=== PATIENT | female | born 1950 | race Caucasian/White ===

== ENCOUNTER 2016-12-28 07:07 | Day surgery (SDC) | payer MEDICARE ==
[~2016-12-28 07:07] MED LIST: Buffered Lidocaine 0.9% SYRIN* 5 ML/SYR SYRINGE INTRADERM ONE
[2016-12-28] MEDS ORDERED: Midazolam* 1 MG/ML 2 ML VIAL (2 MG) ONE (09:38)
[2016-12-28 10:23] VITALS: BP 160/76
--- NOTE | 2016-12-28 10:36 | OP ---
DATE OF OPERATION: 12/28/2016 - [facility] DATE OF : 1950. SURGEON: Lebron Castellanos M.D. PREOPERATIVE DIAGNOSIS: Cataract right eye. POSTOPERATIVE DIAGNOSIS: Cataract right eye. OPERATIVE PROCEDURE: Phacoemulsification right eye with IOL and CTR. DESCRIPTION OF PROCEDURE: The patient was brought to the operating room after being given 1/2% Alcaine with epinephrine drops in the preoperative area. The eye was prepped and draped in the usual sterile fashion. Sterile drape and eyelid speculum were placed. Again, topical 1/2% Alcaine with epinephrine was given. A paracentesis incision was made at the 9 o'clock position with the No.75 blade. Clear cornea incision 2.2 x 2.2-mm was created at the 12 o'clock position starting at the anterior limbus using the 2.2-mm keratome. The anterior chamber was irrigated with 0.4 mL of 1% non-preservative intracameral lidocaine and filled with DisCoVisc. A capsulorrhexis was completed using the cystotome and the Utrata forceps. Hydrodissection was performed with balanced salt solution. The lens nucleus was removed with the Phacoemulsification handpiece without incident. Cortex was removed with the irrigation-aspiration handpiece. The capsular bag was re-inflated using DisCoVisc and an [id number] implant was inserted with the shooter, followed by a capsular tension ring ACTR 11 inserted with its shooter into the capsular bag. The irrigation-aspiration handpiece was used to remove all residual DisCoVisc. The eye was refilled with balanced salt solution and the wound checked and found to be watertight. Topical Maxitrol drops were given. 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 [id number]/[facility] #: [id number] ZEINAB
[2016-12-28] MEDS ORDERED: Flurbiprofen 0.03% OPTH.SOL* 2.5 ML BTL ONE (13:53)
[2016-12-28] MEDS ORDERED: Proparacaine 0.5% OPHTH.SOL* 15 ML BTL ONE (13:53)
[2016-12-28] MEDS ORDERED: Buffered Lidocaine 0.9% SYRIN* 5 ML/SYR SYRINGE ONE (13:53)
[2016-12-28] MEDS ORDERED: Lidocaine 1% MPF wEPI 200,000* 30 ML SDV ONE (13:53)
[2016-12-28] MEDS ORDERED: acetaZOLAMIDE TAB* 250 MG ONE (13:53)
[2016-12-28] MEDS ORDERED: Neomycin/Polymy/Dex OPTH.SUSP* MAXITROL 0.1% 5 ML ONE (13:53)
[2016-12-28] MEDS ORDERED: Cyclopentolate 1% OPTH.SOL* 2 ML BTL ONE (13:53)
[2016-12-28] MEDS ORDERED: Phenylephrine 2.5% OPTH.SOL* 2 ML BTL ONE (13:53)
[2016-12-28] MEDS ORDERED: Povidone Iodine 5% OPTH* 30 ML BTL ONE (13:53)
[2016-12-28] MEDS ORDERED: Lidocaine 1% MPF* 2 ML VIAL ONE (13:53)
== END 2016-12-28 10:24 | disposition home or self-care (01) ==
LOC: OREAST 07:07
PROVIDERS: ATTEND Specialist
DX: H25.811 Combined forms of age-related cataract, right eye (principal); Z79.82 Long term (current) use of aspirin; Z87.891 Personal history of nicotine dependence
CPT/HCPCS: A9270-GY; J2001; J2250; V2632

== ENCOUNTER 2017-01-04 06:46 | Day surgery (SDC) | payer MEDICARE ==
[2017-01-04] MEDS ORDERED: acetaZOLAMIDE TAB* 250 MG ONE (07:37)
[2017-01-04] MEDS ORDERED: Lidocaine 1% MPF* 2 ML VIAL ONE (07:37)
[2017-01-04] MEDS ORDERED: Povidone Iodine 5% OPTH* 30 ML BTL ONE (07:37)
[2017-01-04] MEDS ORDERED: Phenylephrine 2.5% OPTH.SOL* 2 ML BTL ONE (07:37)
[2017-01-04] MEDS ORDERED: Lidocaine 1% MPF wEPI 200,000* 30 ML SDV ONE (07:37)
[2017-01-04] MEDS ORDERED: Neomycin/Polymy/Dex OPTH.SUSP* MAXITROL 0.1% 5 ML ONE (07:37)
[2017-01-04] MEDS ORDERED: Flurbiprofen 0.03% OPTH.SOL* 2.5 ML BTL ONE (07:37)
[2017-01-04] MEDS ORDERED: Cyclopentolate 1% OPTH.SOL* 2 ML BTL ONE (07:37)
[2017-01-04] MEDS ORDERED: Buffered Lidocaine 0.9% SYRIN* 5 ML/SYR SYRINGE ONE (07:38)
[2017-01-04] MEDS ORDERED: Proparacaine 0.5% OPHTH.SOL* 15 ML BTL ONE (07:38)
[2017-01-04] MEDS ORDERED: Midazolam* 1 MG/ML 2 ML VIAL (2 MG) ONE (08:43)
--- NOTE | 2017-01-04 09:14 | OP ---
DATE OF OPERATION: 01/04/2017 - [facility] DATE OF : 1950. SURGEON: Lebron Castellanos M.D. PREOPERATIVE DIAGNOSIS: Cataract left eye. POSTOPERATIVE DIAGNOSIS: Cataract left eye. OPERATIVE PROCEDURE: Phacoemulsification left eye with IOL. DESCRIPTION OF PROCEDURE: The patient was brought to the operating room after being given 1/2% Alcaine with epinephrine drops in the preoperative area. The eye was prepped and draped in the usual sterile fashion. Sterile drape and eyelid speculum were placed. Again, topical 1/2% Alcaine with epinephrine was given. A paracentesis incision was made at the 3 o'clock position with the No.75 blade. Clear cornea incision 2.2 x 2.2-mm was created at the 6 o'clock position starting at the anterior limbus using the 2.2-mm keratome. The anterior chamber was irrigated with 0.4 mL of 1% non-preservative intracameral lidocaine and filled with DisCoVisc. A capsulorrhexis was completed using the cystotome and the Utrata forceps. Hydrodissection was performed with balanced salt solution. The lens nucleus was removed with the Phacoemulsification handpiece without incident. Cortex was removed with the irrigation-aspiration handpiece. The capsular bag was re-inflated using DisCoVisc and an [id number] implant was inserted with the shooter. The irrigation-aspiration handpiece was used to remove all residual DisCoVisc. The eye was refilled with balanced salt solution and the wound checked and found to be watertight. Topical Maxitrol drops were given. [id number]/[facility] #: [id number] [facility]
[2017-01-04 09:20] VITALS: BP 112/65
== END 2017-01-04 09:19 | disposition home or self-care (01) ==
LOC: OREAST 06:46
PROVIDERS: ATTEND Specialist
DX: H25.812 Combined forms of age-related cataract, left eye (principal); H40.1411 Capsular glaucoma with pseudoexfoliation of lens, right eye, mild stage; Z79.82 Long term (current) use of aspirin; Z87.891 Personal history of nicotine dependence
CPT/HCPCS: A9270-GY; J2001; J2250; V2632

== ENCOUNTER 2018-09-17 17:21 | Inpatient (IN) | payer MEDICARE ==
[2018-09-17] MEDS ORDERED: Acetaminophen TAB* 325 MG PO ONE (17:34)
[2018-09-17] MEDS ORDERED: NS 0.9% 1000 ML** 2,000 ML IV ONE (19:25)
[2018-09-17] MEDS ORDERED: Piperacillin/Tazobac ADVAN(*) 3.375 GM in NS 0.9% 100 ML* 100 ML IVPB ONE (19:26)
[2018-09-17] MEDS ORDERED: Ondansetron INJ* 2 MG/ML VIAL IV PRN (20:02)
[2018-09-17] MEDS ORDERED: Acetaminophen TAB* 325 MG PO PRN (20:02)
[2018-09-17 20:03] LABS: ABS Basophils 0 10^3/ul (0-0.2); ABS Eosinophils 0 10^3/ul (0-0.6); ABS Lymphocytes 2.1 10^3/ul (1.0-4.8); ABS Monocytes 1.5 10^3/ul (0-0.8); ABS Neutrophils 12.4 10^3/ul (1.5-7.7); ABS Nucleated RBC 0 10^3/ul; Eosinophil % 0.2 %; Hematocrit 37 % (35-47); Lymphocyte % 13.2 %; Mean Corpuscular HGB Conc 33 g/dl (31-36); Mean Corpuscular Hemoglobin 28 pg (27-31); Mean Corpuscular Volume 85 fL (80-97); Mean Platelet Volume 6.4 fL (7.4-10.4); Nucleated Red Blood Cells % 0; Platelet Count 304 10^3/ul (150-450); Red Blood Count 4.28 10^6/ul (4.00-5.40); Red Cell Distribution Width 13 % (10.5-15); White Blood Count 16.2 10^3/ul (3.5-10.8)
--- NOTE | 2018-09-17 20:16 | ED ---
Abdominal Pain/Female - HPI Summary HPI Summary: The patient is a 68 y/o F presenting to [facility] accompanied by with a chief complaint of sudden onset sharp suprapubic abd pain for the last 10 days. She is still in pain, which is currently rated 3/10 in severity. She has had one episode of vomiting, during initial onset, and she has been intermittently nauseous since then with a decreased appetite. The pain has been aggravated by eating, despite trying to be careful with her diet, and she has only been eating soup. She denies fevers. Surgical hx of appendectomy. She presented to [facility] this morning, and was advised to come here. She thinks that it may be diverticulitis. - History of Current Complaint Chief Complaint: EDKarenin Stated Complaint: DIVERTICULITIS PER PT Time Seen by Provider: 09/17/18 19:15 Hx Obtained From: Patient Onset/Duration: Sudden Onset, Lasting Days - 10 days, Still Present Timing: Days Severity Initially: Moderate Severity Currently: Moderate Pain Intensity: 3 Pain Scale Used: 0-10 Numeric Location: Suprapubic Radiates: No Character: Sharp Aggravating Factor(s): Food Alleviating Factor(s): Nothing Associated Signs and Symptoms: Positive: Decreased Appetite, Nausea, Vomiting - one episode. Negative: Fever Allergies/Adverse Reactions: Allergies Allergy/AdvReac Type Severity Reaction Status Date / Time No Known Allergies Allergy Verified 01/04/17 07:15 Home Medications: Home Medications Aspirin 1 tab PO DAILY 09/17/18 [History Confirmed 09/17/18] [place]-3 Fatty Acids (Nf) [Fish Oil (NF)] 1 cap PO DAILY 09/17/18 [History Confirmed 09/17/18] PMH/Surg Hx/FS Hx/Imm Hx Endocrine/Hematology History: Denies: Hx Diabetes Cardiovascular History: Reports: Other Cardiovascular Problems/Disorders - genetically high cholesterol, uses diet modification GI History: Reports: Hx Gastroesophageal Reflux Disease - diet modification, uses [place] vinager daily, Other GI Disorders - change in BM, will have colonoscopy after cataract surgery Sensory History: Reports: Hx Cataracts, Hx Contacts or Glasses - near sighted, but does not wear often Denies: Hx Glaucoma, Hx Hearing Aid Opthamlomology History: Reports: Hx Cataracts, Hx Contacts or Glasses - near sighted, but does not wear often Denies: Hx Glaucoma Psychiatric History: Reports: Hx Anxiety - hx of, resolved, better since retired , Hx Depression - hx of, resolved, - Surgical History Surgery Procedure, Year, and Place: 2 yrs old. 19 yrs old, appendectomy. 21 yrs old: left leg scar repair. 1976 and 1978 Hx Anesthesia Reactions: No Infectious Disease History: No Infectious Disease History: Denies: Traveled Outside the [place] in Last 30 Days - Family History Known Family History: Negative: Diabetes - Social History Alcohol Use: Rare Alcohol Amount: 1-2 glasses a year Substance Use Type: Reports: Marijuana Substance Use Comment - Amount & Last Used: smokes marijuana during the day Smoking Status (MU): Former Smoker Amount Used/How Often: smoked for 45 yrs 1 ppd Review of Systems Negative: Fever Positive: Abdominal Pain - suprapubic, Vomiting - one episode, Nausea, Other - decreased appetite All Other Systems Reviewed And Are Negative: Yes Physical Exam - Summary Physical Exam Summary: Appearance: Well-appearing, Well-nourished, lying in bed comfortably Skin: Warm, dry, no obvious rash Eyes: sclera anicteric, no conjunctival pallor ENT: mucous membranes moist, pharynx appears normal Neck: Supple, nontender Respiratory: Clear to auscultation, no signs of respiratory distress Cardiovascular: Normal S1, S2. No murmurs. Normal distal pulses in tibial and radial bilaterally. Abdomen: Soft, nontender, normal active bowel sounds present Musculoskeletal: Normal, Strength/ROM Intact Neurological: A&Ox3, awake and alert, mentation is normal, speech is fluent and appropriate Psychiatric: affect is normal, does not appear anxious or depressed Triage Information Reviewed: Yes Vital Signs On Initial Exam: Initial Vitals Temp Pulse Resp BP Pulse Ox 101.3 F 110 20 154/80 95 09/17/18 17:32 09/17/18 17:32 09/17/18 17:32 09/17/18 17:32 09/17/18 17:32 Vital Signs Reviewed: Yes Diagnostics - Vital Signs Vital Signs Temp Pulse Resp BP Pulse Ox 09/17/18 17:32 101.3 F 110 20 154/80 95 - Laboratory Lab Results: Lab Results 09/17/18 Range/Units 19:48 WBC 16.2 H (3.5-10.8) 10^3/ul RBC 4.28 (4.00-5.40) 10^6/ul Hgb 12.0 (12.0-16.0) g/dl Hct 37 (35-47) % MCV 85 (80-97) fL MCH 28 (27-31) pg MCHC 33 (31-36) g/dl RDW 13 (10.5-15) % Plt Count 304 (150-450) 10^3/ul MPV 6.4 L (7.4-10.4) fL Neut % (Auto) 76.7 % Lymph % (Auto) 13.2 % [place] % (Auto) 9.6 % Eos % (Auto) 0.2 % Baso % (Auto) 0.3 % Absolute Neuts (auto) 12.4 H (1.5-7.7) 10^3/ul Absolute Lymphs (auto) 2.1 (1.0-4.8) 10^3/ul Absolute Monos (auto) 1.5 H (0-0.8) 10^3/ul Absolute Eos (auto) 0 (0-0.6) 10^3/ul Absolute Basos (auto) 0 (0-0.2) 10^3/ul Absolute Nucleated RBC 0 10^3/ul Nucleated RBC % 0 Result Diagrams: 09/17/18 19:48 09/17/18 19:48 Lab Statement: Any lab studies that have been ordered have been reviewed, and results considered in the medical decision making process. Abdominal Pain Fem Course/Dx - Course Course Of Treatment: The patient is a 68 y/o F with a chief complaint of sudden onset sharp suprapubic abd pain for the last 10 days. She has had one episode of vomiting, during initial onset, and she has been intermittently nauseous since then with a decreased appetite. The pain has been aggravated by eating, despite trying to be careful with her diet, and she has only been eating soup. She denies fevers. Surgical hx of appendectomy. Upon physical examination, there are no acute abnormalities. In the ED course, the patient was given Tylenol and Piperacillin/Tazobactam. Bloodwork reveals elevated WBCs, neuts, monos, and CRPs. I consulted with Dr. Pearson, hospitalist, at 1935 who accepts the patient for observational admission. She is diagnosed with diverticular abscess, per results from [facility]. The patient understands the need for admission and agrees with this plan. - Diagnoses Provider Diagnoses: Intestinal diverticular abscess - Provider Notifications Discussed Care Of Patient With: Kev Pearson - hospitalist Time Discussed With Above Provider: 19:35 Instructed by Provider To: Admit As Observation - Dr. Pearson accepts the patient for admission. Admit/Transition Orders Completed By ED Provider: Yes Discharge - Sign-Out/Discharge Documenting (check all that apply): Patient Departure - [place] [facility] [place] by Dr. Pearson. Patient Received Moderate/Deep Sedation with Procedure: No - Discharge Plan Condition: Fair Disposition: ADMITTED TO [facility] - Billing Disposition and Condition Condition: FAIR Disposition: Admitted to [facility] - Attestation Statements Document Initiated by Amelie: Yes Documenting Scribe: Li Benjamin Provider For Whom Amelie is Documenting (Include Credential): Dr. Oleksandr Serrato MD Scribe Attestation: Li Mistry scribed for Dr. Oleksandr Serrato MD on 09/18/18 at 0606. Scribe Documentation Reviewed: Yes Provider Attestation: The documentation as recorded by the Li rabago accurately reflects the service I personally performed and the decisions made by me, Dr. Oleksandr Serrato MD Status of Scribphillip Document: Viewed
[2018-09-17 20:31] LABS: BUN/Creatinine Ratio 16.7 (8-20); C Reactive Protein 127.5 mg/L (<8.01); EGFR African American 97.2 (>60); EGFR Non-African American 80.3 (>60); Potassium 3.7 mmol/L (3.5-5.0)
[2018-09-17] MEDS ORDERED: Lactated Ringers 1000 ML Bag* 1,000 ML IV SCH ×2 (21:00)
[2018-09-17] MEDS ORDERED: Zosyn per Pharmacy* NOTE FOLLOW UP SCH (21:00)
[2018-09-17 22:07] LABS: Urine Appearance Clear; Urine Bilirubin Negative (Negative); Urine Blood Negative (Negative); Urine Color Colorless; Urine Glucose Negative (Negative); Urine Ketones Trace (Negative); Urine Nitrite Negative (Negative); Urine Protein Negative (Negative); Urine Specific Gravity 1.004 (1.010-1.030); Urine Urobilinogen Negative (Negative)
--- NOTE | 2018-09-17 22:56 | HP ---
CC: Nikole Moody Schuyler * ADMISSION HISTORY AND PHYSICAL: DATE OF ADMISSION: 09/17/18 PRIMARY CARE PROVIDER: Nikole Moody Schuyler. MY ATTENDING WHILE IN THE HOSPITAL: Dr. Pearson.* (DICTATED BY TEVIN BENNETT) CHIEF COMPLAINT: Abdominal pain x12 days. HISTORY OF PRESENT ILLNESS: Ms. Chen is a 68-year-old female with past medical history significant for hypertension, hyperlipidemia, and emphysema who presents to the emergency department on . Twelve days ago, she began having severe abdominal pain in her left lower quadrant, particularly with eating, as well as some diarrhea and some vomiting which was orange in color without blood. There was no blood in her stool either. Patient had some low- grade fevers and chills on and off since then. Patient has been able to tolerate a moderate amount of fluids, but anytime she eats she has accompanied severe lower abdominal pain. Patient denies dysuria. Patient has felt intermittent nausea and vomiting. She denies chest pain. Patient has been able to tolerate this over the past 10 days, but states that this morning she took only 3 bites of scrambled eggs and again had the severe abdominal pain, went to the [facility]. Patient there had a CT contrast abdomen and pelvis, which showed a likely abscess between her uterus and her sigmoid colon. Patient was then transferred [place] [facility] [place] [facility] Patient in the emergency department is pain-free and her pain is not reproducible with palpation; however, she does have a white blood cell count. She had a fever of 101.3 and a pulse rate of 110 on admission. On arrival, due to intraabdominal abscess with concern for diverticulitis, we were asked to evaluate the patient for admission to the hospital. PAST MEDICAL HISTORY: Emphysema, hypertension, hyperlipidemia. PAST SURGICAL HISTORY: Appendectomy, x2, skin grafting, cataract surgery, strabismus repair. MEDICATIONS: 1. Aspirin 81 mg p.o. daily. 2. Turmeric. 3. Vitamin C. 4. Fish oil. 5. Vitamin D. 6. High-dose calcium, magnesium and zinc supplementation. ALLERGIES: No known drug allergies. FAMILY HISTORY: Patient's mother of old age. Patient's father of CAD and diabetes. Patient had a brother who of complications of diabetes. SOCIAL HISTORY: Patient smoked for 4 to 5 years and quit 10 years ago. Patient smoked about a pack a day. Patient denies alcohol abuse. Patient still smokes marijuana. Patient used to work at [employer]. Patient is , has 2 children. Her surrogate decision maker will be her , José. REVIEW OF SYSTEMS: A 14-point review of systems was reviewed and is negative, except as above in the HPI. PHYSICAL EXAMINATION GENERAL: Patient is a 68-year-old female who appears her stated age and is sitting comfortably in bed, in no acute distress. VITAL SIGNS: Temperature 101.3, pulse rate 110, respiratory rate 20, oxygen saturation 95% on room air, and blood pressure 154/80. HEENT: Head normocephalic and atraumatic. Sclerae anicteric. No conjunctival injection. Nasal mucosa moist. Oral mucosa moist. No pharyngeal erythema, discharge, or exudate. NECK: Supple, nontender. No lymphadenopathy. No carotid bruits auscultated. No JVD. RESPIRATORY: Diminished throughout. No wheezes, rales, or rhonchi. Good air exchange bilaterally. CARDIAC: Regular rate and rhythm. No clicks, murmurs, gallops, or rubs. Pulses 2+ in the bilateral dorsalis pedis, posterior tibialis and radial areas. ABDOMEN: Soft, nontender, and nondistended. Bowel sounds present and normoactive in all 4 quadrants. No hepatosplenomegaly. No abdominal bruits auscultated. No hepatojugular reflux. Normal percussion. Negative Burnett sign. No rebound or guarding. GENITOURINARY: No CVA or suprapubic tenderness. SKIN: Clean, dry, intact. No rash. NEUROLOGIC: Cranial nerves II through XII through intact. No focal deficits. Alert and oriented x3. PSYCHIATRIC: Pleasant and cooperative. DIAGNOSTIC STUDIES/LAB DATA: Laboratory Data: White blood count 16.2, hemoglobin 12.0, platelet count 304. BMP from [facility]: Glucose 124, creatinine 0.9, BUN 17.8, sodium 135, potassium 4.1, chloride 99, carbon dioxide 26, anion gap 12, calcium 9.8, bilirubin 7.8, albumin 3.5, globulin 4.3 , bilirubin 0.5, AST 18, ALT 30, alkaline phosphatase 84. Studies: Abdomen and pelvis CT, impression: Abscess in the pelvis interposed between the sigmoid colon and uterus favored over a large diverticulum and diverticulitis. We will consider a CT pelvis with rectal contrast prior to any intervention to confirm this represents an abscess. ASSESSMENT AND PLAN: Impression: Ms. Chen is a 68-year-old female with a past medical history significant for hypertension, hyperlipidemia, and emphysema who presents to the emergency department with intermittent abdominal pain particularly with eating for 10 days and was found at an outside facility to have an intraabdominal abscess versus diverticulitis. Patient will be admitted to the hospital for IV antibiotics and surgical consultation. 1. Intraabdominal abscess likely related to diverticulitis. Patient has been having pain on and off for 10 days. Patient meets sepsis criteria at this time. Patient will be given her full 30 mg/kg bolus and then be continued on fluids given her limited ability to take in intake. Due to patient's nausea and vomiting with solids, we will have her on a clear liquid diet, may advance this as tolerated. Patient will be seen in consultation and has been discussed with Dr. Zackary Bangura, who recommended conservative treatment, antibiotics at this time. Patient is currently stable. 2. Emphysema. Patient is not on any medications for her lungs. Patient is currently not in chronic obstructive pulmonary disease exacerbation. 3. Hypertension. Patient is currently borderline hypertensive. Patient is on no medications as this is a recent finding for her. We will monitor patient closely, but we will not start to treat this in the setting of acute illness unless necessary. 4. Hyperlipidemia. Continue patient's fish oil. 5. DVT prophylaxis. Patient will be on heparin subcu. 6. FEN. Patient will have a clear liquid diet and fluids as above. TIME SPENT: Approximately 60 minutes were spent on the admission of this patient, 30 of which were spent [id number] with the patient obtaining history and physical and discussing treatment plan. The plan was discussed with my attending, Dr. Pearson, and he is in agreement. TEVIN BENNETT [id number]/[facility] #: [id number] MTDD
[2018-09-17] MEDS: Heparin VIAL(*) 5000 UNITS/ML VIAL (FIVE THOUSAND) SUBCUT SCH (23:14)
[2018-09-17] MEDS ORDERED: NS 0.9% 1000 ML** 1,000 ML IV ONE (23:45)
[2018-09-18] MEDS ORDERED: ZOSYN 3.375 GM Q8H per EXTENDED INFUSION IVPB SCH ×2
[2018-09-18] MEDS ORDERED: diPHENhydraMINE PO* 25 MG PO ONE (01:59)
[2018-09-18] MEDS: NS 0.9% 1000 ML** 1,000 ML IV SCH ×2 (02:52→17:36)
[2018-09-18] MEDS: Heparin VIAL(*) 5000 UNITS/ML VIAL (FIVE THOUSAND) SUBCUT SCH ×3 (06:05→21:49)
[2018-09-18 07:55] LABS: ABS Basophils 0 10^3/ul (0-0.2); ABS Eosinophils 0 10^3/ul (0-0.6); ABS Lymphocytes 1.5 10^3/ul (1.0-4.8); ABS Monocytes 1.1 10^3/ul (0-0.8); ABS Neutrophils 10.8 10^3/ul (1.5-7.7); ABS Nucleated RBC 0 10^3/ul; Eosinophil % 0.2 %; Hematocrit 36 % (35-47); Lymphocyte % 11.4 %; Mean Corpuscular HGB Conc 33 g/dl (31-36); Mean Corpuscular Hemoglobin 28 pg (27-31); Mean Corpuscular Volume 86 fL (80-97); Mean Platelet Volume 6.3 fL (7.4-10.4); Nucleated Red Blood Cells % 0; Platelet Count 282 10^3/ul (150-450); Red Blood Count 4.22 10^6/ul (4.00-5.40); Red Cell Distribution Width 13 % (10.5-15); White Blood Count 13.5 10^3/ul (3.5-10.8)
[2018-09-18 08:10] LABS: BUN/Creatinine Ratio 11.4 (8-20); C Reactive Protein 175.61 mg/L (<8.01); Calcium 8.7 mg/dL (8.6-10.3); EGFR African American 100.4 (>60); Potassium 3.9 mmol/L (3.5-5.0)
[2018-09-18] MEDS: CMCS: OMEGA-3 FATTY ACIDS (NF) 1,000 MG CAP PO SCH (09:08)
[2018-09-18] MEDS: ZOSYN 3.375 GM Q8H per EXTENDED INFUSION IVPB SCH ×4 (10:23→17:34)
[2018-09-18 10:37] LABS: Hepatitis C Antibody Nonreactive (Nonreactive)
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
[2018-09-18] MEDS: Cholecalciferol TAB* 1000 UNITS PO SCH (17:33)
--- NOTE | 2018-09-18 17:34 | PN ---
Progress Note - Progress Note Date of Service: 09/18/18 SOAP: Subjective: Patient seen and examined Care discussed with Jamel Boles CT reviewed She had colonoscopy last fall-left colon diverticula PEX: Abd is soft and non-distended. Minimal pain on deeper palpation, no rebound or peritoneal signs Plan: Agree with IV abx--abscess is quite small and should resolve with antibiotics Discussed with patient Will follow
--- NOTE | 2018-09-18 17:58 | PN ---
Subjective Date of Service: 09/18/18 Interval History: HOSPITALIST PROGRESS NOTE Patient seen and examined at bedside. Care reviewed and d/w Cayla Vang RN. She feels better today. Abdominal pain is less intense, passing flatus and had 2 small BMs today. Family History: Unchanged from Admission Social History: Unchanged from Admission Past Medical History: Unchanged from Admission Objective Active Medications: Acetaminophen (Tylenol Tab*) 650 mg PO Q6H PRN PRN Reason: FEVER/PAIN Cholecalciferol (Vitamin D Tab*) 1,000 units PO QPM [facility] Last Admin: 09/18/18 17:33 Dose: 1,000 units Fish Oil (Fish Oil (Nf)) 1,000 mg PO DAILY [facility]; Protocol Last Admin: 09/18/18 09:08 Dose: 1,000 mg Heparin Sodium (Porcine) (Heparin Vial(*)) 5,000 units SUBCUT Q8HR [facility] Last Admin: 09/18/18 13:49 Dose: 5,000 units Sodium Chloride (Ns 0.9% 1000 Ml) 1,000 mls @ 75 mls/hr IV PER RATE [facility] Last Admin: 09/18/18 17:36 Dose: 75 mls/hr Piperacillin Sod/Tazobactam (Sod 3.375 gm/ Sodium Chloride) 100 mls @ 25 mls/ hr IVPB 0300,1100,1900 [facility] Last Admin: 09/18/18 17:34 Dose: 25 mls/hr Ondansetron HCl (Zofran Inj*) 4 mg IV Q6H PRN PRN Reason: NAUSEA Pharmacy Consult (Zosyn Per Pharmacy*) 1 note FOLLOW UP .ZOSYN PER PHARMACY [facility] Vital Signs - 8 hr 09/18/18 09/18/18 11:37 15:26 Temperature 98.4 F 98.4 F Pulse Rate 93 89 Respiratory 17 16 Rate Blood Pressure 136/49 117/61 (mmHg) O2 Sat by Pulse 98 Oximetry Appearance: Pleasant elderly lady lying in bed in NAD. Eyes: No Scleral Icterus Ears/Nose/Mouth/Throat: Mucous Membranes Moist Neck: Trachea Midline Respiratory: Symmetrical Chest Expansion and Respiratory Effort, Clear to Auscultation Cardiovascular: NL Sounds; No Murmurs; No JVD, RRR Abdominal: NL Sounds; No Tenderness; No Distention Neurological: Alert and Oriented x 3, NL Muscle Strength and Tone - Nutrition: Malnutrition Diagnosis/Plan Malnutrition Assessment by Registered Dietitian: Malnutrition Assessment Clinical Characteristics Acute,Moderate Malnutrition Assessment: - wt loss 10# within past month (6.2%) Criteria - po intake <75% EEE for >= 7 days Malnutrition Assessment: 1. will trial Ensure Clear @ B and D meals ( 240 Interventions kcals, 8 g prot/serv) 2. will follow tolerance to clear liquid diet and subsequent progression toward soft solids 3. consider TPN if pt's course become more complicated or requires surgical intervention Malnutrition Assessment: Goals 1. pt will ultimately tolerate diet progression without exacerbated GI distress 2. adequate po intake to maintain lean body mass, hydration, and stable wt 3. achieve and maintain serum electrolytes levels WNL 4. achieve and maintain regulated bowel pattern without c/o constipation (or diarrhea) Result Diagrams: 09/18/18 07:43 09/18/18 07:43 Assess/Plan/Problems-Billing Assessment: Mrs Pyle is a 68yo F with PMH of HLD, COPD, transferred from [facility] due to diverticulitis with small abscess. - Patient Problems (1) Diverticulitis Comment: - Continue Zosyn. - Surgery input appreciated - abscess is small, no indication for drainage. - Leukocytosis is trending down, CRP still trending up - monitor. (2) DVT prophylaxis Comment: - SQ heparin. (3) Full code status Status and Disposition: Change to inpatient.
[2018-09-19] MEDS: ZOSYN 3.375 GM Q8H per EXTENDED INFUSION IVPB SCH ×6 (03:21→18:49)
[2018-09-19] MEDS: NS 0.9% 1000 ML** 1,000 ML IV SCH (04:33)
[2018-09-19] MEDS: Heparin VIAL(*) 5000 UNITS/ML VIAL (FIVE THOUSAND) SUBCUT SCH ×3 (05:19→21:57)
[2018-09-19 05:41] LABS: ABS Basophils 0 10^3/ul (0-0.2); ABS Eosinophils 0 10^3/ul (0-0.6); ABS Lymphocytes 1.8 10^3/ul (1.0-4.8); ABS Neutrophils 9.3 10^3/ul (1.5-7.7); ABS Nucleated RBC 0 10^3/ul; Eosinophil % 0.2 %; Hematocrit 33 % (35-47); Lymphocyte % 14.8 %; Mean Corpuscular HGB Conc 33 g/dl (31-36); Mean Corpuscular Hemoglobin 28 pg (27-31); Mean Corpuscular Volume 86 fL (80-97); Mean Platelet Volume 6.3 fL (7.4-10.4); Nucleated Red Blood Cells % 0; Platelet Count 251 10^3/ul (150-450); Red Cell Distribution Width 13 % (10.5-15); White Blood Count 12.1 10^3/ul (3.5-10.8)
[2018-09-19 06:08] LABS: BUN/Creatinine Ratio 10.5 (8-20); C Reactive Protein 204.74 mg/L (<8.01); Calcium 8.3 mg/dL (8.6-10.3); EGFR African American 127.2 (>60); EGFR Non-African American 105.2 (>60); Potassium 3.5 mmol/L (3.5-5.0)
[2018-09-19] MEDS: CMCS: OMEGA-3 FATTY ACIDS (NF) 1,000 MG CAP PO SCH (09:46)
--- NOTE | 2018-09-19 13:28 | PN ---
Subjective Date of Service: 09/19/18 Interval History: HOSPITALIST PROGRESS NOTE Patient seen and examined at bedside. Care reviewed and d/w Chelsey Rangel RN. She feels a little better today. Abdominal pain is less intense. Had one loose BM earlier today. Tolerating clear liquids well, no N/V. Family History: Unchanged from Admission Social History: Unchanged from Admission Past Medical History: Unchanged from Admission Objective Active Medications: Acetaminophen (Tylenol Tab*) 650 mg PO Q6H PRN PRN Reason: FEVER/PAIN Cholecalciferol (Vitamin D Tab*) 1,000 units PO QPM [facility] Last Admin: 09/18/18 17:33 Dose: 1,000 units Fish Oil (Fish Oil (Nf)) 1,000 mg PO DAILY [facility]; Protocol Last Admin: 09/19/18 09:46 Dose: 1,000 mg Heparin Sodium (Porcine) (Heparin Vial(*)) 5,000 units SUBCUT Q8HR [facility] Last Admin: 09/19/18 05:19 Dose: 5,000 units Piperacillin Sod/Tazobactam (Sod 3.375 gm/ Sodium Chloride) 100 mls @ 25 mls/ hr IVPB 0300,1100,1900 [facility] Last Admin: 09/19/18 11:11 Dose: 25 mls/hr Ondansetron HCl (Zofran Inj*) 4 mg IV Q6H PRN PRN Reason: NAUSEA Pharmacy Consult (Zosyn Per Pharmacy*) 1 note FOLLOW UP .ZOSYN PER PHARMACY [facility] Vital Signs - 8 hr 09/19/18 09/19/18 09/19/18 07:32 08:00 11:33 Temperature 98.5 F 98.3 F Pulse Rate 93 96 Respiratory 16 16 16 Rate Blood Pressure 124/61 142/73 (mmHg) O2 Sat by Pulse 98 100 Oximetry Oxygen Devices in Use Now: None Appearance: Pleasant lady lyingin bed in NAD. Eyes: No Scleral Icterus Ears/Nose/Mouth/Throat: Mucous Membranes Moist Neck: Trachea Midline Respiratory: Symmetrical Chest Expansion and Respiratory Effort, Clear to Auscultation Cardiovascular: RRR - Normal S1 and S2 Abdominal: - - Soft, mild hypogastric tenderness, NG, NR, BS+ and hyperactive Extremities: No Edema Neurological: Alert and Oriented x 3, NL Muscle Strength and Tone - Nutrition: Malnutrition Diagnosis/Plan Malnutrition Assessment by Registered Dietitian: Malnutrition Assessment Clinical Characteristics Acute,Moderate Malnutrition Assessment: - wt loss 10# within past month (6.2%) Criteria - po intake <75% EEE for >= 7 days Malnutrition Assessment: 1. will trial Ensure Clear @ B and D meals ( 240 Interventions kcals, 8 g prot/serv) 2. will follow tolerance to clear liquid diet and subsequent progression toward soft solids 3. consider TPN if pt's course become more complicated or requires surgical intervention Malnutrition Assessment: Goals 1. pt will ultimately tolerate diet progression without exacerbated GI distress 2. adequate po intake to maintain lean body mass, hydration, and stable wt 3. achieve and maintain serum electrolytes levels WNL 4. achieve and maintain regulated bowel pattern without c/o constipation (or diarrhea) Result Diagrams: 09/19/18 05:20 09/19/18 05:20 Assess/Plan/Problems-Billing Assessment: Mrs Pyle is a 68yo F with PMH of HLD, COPD, transferred from [facility] due to diverticulitis with small abscess. - Patient Problems (1) Diverticulitis Comment: - Continue Zosyn. - Surgery input appreciated - abscess is small, no indication for drainage. - Leukocytosis is trending down, CRP still trending up - monitor. (2) DVT prophylaxis Comment: - SQ heparin. (3) Full code status Status and Disposition: Inpatient. Anticipate d/c in 1-2 days if she continues to improve.
[2018-09-19] MEDS: Cholecalciferol TAB* 1000 UNITS PO SCH (18:48)
[2018-09-20] MEDS: ZOSYN 3.375 GM Q8H per EXTENDED INFUSION IVPB SCH ×4 (03:25→12:25)
[2018-09-20] MEDS: Heparin VIAL(*) 5000 UNITS/ML VIAL (FIVE THOUSAND) SUBCUT SCH (05:33)
[2018-09-20 07:42] LABS: ABS Basophils 0 10^3/ul (0-0.2); ABS Eosinophils 0 10^3/ul (0-0.6); ABS Lymphocytes 1.3 10^3/ul (1.0-4.8); ABS Monocytes 0.7 10^3/ul (0-0.8); ABS Nucleated RBC 0 10^3/ul; Eosinophil % 0.4 %; Hematocrit 36 % (35-47); Hemoglobin 11.9 g/dl (12.0-16.0); Lymphocyte % 12.9 %; Mean Corpuscular HGB Conc 33 g/dl (31-36); Mean Corpuscular Hemoglobin 28 pg (27-31); Mean Corpuscular Volume 85 fL (80-97); Mean Platelet Volume 6.7 fL (7.4-10.4); Nucleated Red Blood Cells % 0; Platelet Count 279 10^3/ul (150-450); Red Blood Count 4.19 10^6/ul (4.00-5.40); Red Cell Distribution Width 13 % (10.5-15)
[2018-09-20] MEDS: CMCS: OMEGA-3 FATTY ACIDS (NF) 1,000 MG CAP PO SCH (08:18)
[2018-09-20 08:30] LABS: BUN/Creatinine Ratio 10.4 (8-20); C Reactive Protein 192.41 mg/L (<8.01); Calcium 8.7 mg/dL (8.6-10.3); EGFR African American 105.6 (>60); EGFR Non-African American 87.3 (>60); Potassium 3.1 mmol/L (3.5-5.0)
[2018-09-20 11:56] VITALS: BP 138/57
[2018-09-20] MEDS ORDERED: Potassium Chlor TAB* 20 MEQ TAB.ER PO SCH (12:00)
[2018-09-20] MEDS ORDERED: Amoxicillin/Clavulanate TAB* 875 MG PO ONE (12:11)
--- NOTE | 2018-09-21 21:33 | DS ---
CC: TEVIN Diaz DISCHARGE SUMMARY: DATE OF ADMISSION: 09/17/18 DATE OF DISCHARGE: 09/20/18 PRIMARY CARE PROVIDER: TEVIN Diaz, at [facility]. DISCHARGE DIAGNOSIS: Diverticulitis with diverticular abscess. SECONDARY DIAGNOSES: 1. Hypertension. 2. Hyperlipidemia. MEDICATION LIST: 1. Aspirin 81 mg p.o. daily. 2. Fish oil 1 capsule p.o. daily. 3. Cholecalciferol 60 mg p.o. at bedtime. 4. Calcium plus magnesium plus zinc plus vitamin D 1 tablet p.o. at bedtime. 5. Vitamin C 1 tablet p.o. at bedtime. 6. Potassium chloride 10 mEq p.o. daily. New medications: 1. Augmentin 875 mg 1 tablet p.o. q.12 hours for 10 more days. 2. Acetaminophen 650 mg p.o. q.6 hours p.r.n. pain or fever. HOSPITAL COURSE: Mrs. Chen is a 68-year-old lady with a past medical history as stated above t hat presented to the emergency room, transferred from [facility] with complaints of abdominal pain for 12 days. She described the pain as severe in her left lower quadrant associated with some d iarrhea and vomiting. She presented to the emergency room at [facility] and there, she had a CT of the abdomen and pelvis with contrast that showed likely abscess between her uterus and sigmoid colon. The patient was transferred to the [facility] Emergency Department for further evaluation. For more details about her presentation, I refer you to her history and physical. The patient was seen in consultation by General Surgery (Dr. Bangura), and his impression was that the patient likely had diverticulitis with a small abscess. His recommendation was for IV antibiotics as he felt the abscess was quite small and would not require invasive measures. The patient had improvement of her symptoms, resolution of her leukocytosis, improvement of her CRP. She was able to tolerate low-fiber diet and on 09/20/18, she was felt to be stable for discharge. The patient states she had a colonoscopy done in our system with Dr. Jay last year, but I could n ot find those reports. If this information is correct and the patient had a colonoscopy in April year, I do not think she needs a repeat one, but if this is not correct, she would need evaluatio n by GI with repeat colonoscopy, especially if her symptoms return. The patient is medically stable for discharge and she will follow up with her primary care provider as outpatient. PHYSICAL EXAMINATION: Vital Signs: Temperature 97.9, heart rate is 88, respiratory rate is 17, oxyg en saturation 98% on room air, blood pressure is 122/79. General: The patient is a pleasant lady, s itting up in bed, in no acute distress. CVS: Normal S1, S2. Regular rate and rhythm. Chest: Cristina th sounds bilaterally with no added sounds. Abdomen is soft, nontender, nondistended. Bowel sounds are present. Extremities: No edema. Neuro: She is alert and oriented x3. She is able to move all 4 extremities. DIET: Low-fiber diet. ACTIVITIES: As tolerated. DISPOSITION: To home. STATUS WHILE IN THE HOSPITAL: Inpatient. CONDITION AT THE TIME OF DISCHARGE: Fair. Please keep in mind this is a summarized version of this patient's hospital stay. If you need more in formation, please feel free to call me at [phone] or please obtain the full medical records. TIME SPENT: Approximately, 45 minutes was spent to complete this discharge. [id number]/[facility] #: [id number]
== END 2018-09-20 12:59 | disposition home or self-care (01) | DRG 872 ==
LOC: ED 17:21 → SSU 20:03 → OBSVTOIN 09-18 15:45
PROVIDERS: ADMIT Student in an Organized Health Care Education/Training Program; ATTEND Internal Medicine
DX: A41.9 Sepsis, unspecified organism (principal); K57.20 Diverticulitis of large intestine with perforation and abscess without bleeding; E44.0 Moderate protein-calorie malnutrition; I10 Essential (primary) hypertension; E78.5 Hyperlipidemia, unspecified; K21.9 Gastro-esophageal reflux disease without esophagitis; J43.9 Emphysema, unspecified; E78.00 Pure hypercholesterolemia, unspecified; H52.10 Myopia, unspecified eye; Z87.891 Personal history of nicotine dependence; Z82.49 Family history of ischemic heart disease and other diseases of the circulatory system; Z98.42 Cataract extraction status, left eye; Z98.41 Cataract extraction status, right eye; Z83.3 Family history of diabetes mellitus; Z79.82 Long term (current) use of aspirin; Z80.0 Family history of malignant neoplasm of digestive organs; Z72.89 Other problems related to lifestyle; Z68.24 Body mass index [BMI] 24.0-24.9, adult
CPT/HCPCS: 36415; 80048; 81003; 83605; 83735; 85025; 86140; 86803; 87040; 99284; A9270-GY; J1644; J2543